=== PATIENT | male | born 1990 | race Hispanic/Latino ===

== ENCOUNTER 2018-02-25 02:42 | Emergency (ER) | payer SELFPAY ==
[2018-02-25] MEDS ORDERED: KETOROLAC 30 MG/ML INJ ONE (02:53)
[2018-02-25] MEDS ORDERED: NA CHLORIDE 0.9% 0 ML ONE (02:53)
[2018-02-25] MEDS ORDERED: MORPHINE 4 MG/ML SYR ONE ×2 (03:10→05:08)
[2018-02-25] MEDS ORDERED: ONDANSETRON 4 MG/2 ML VIAL ONE (03:10)
[2018-02-25 03:36] LABS: Absolute Lymphocytes (CBC) 5.6 K/uL (0.7-4.9); Absolute Neutrophil 5.2 K/uL (1.8-8.0); Basophils % 0.5 % (0-1.3); Eosinophils % 3.4 % (0-4.4); Hematocrit 44.6 % (39.6-49.0); Lymphocytes % 45.8 % (15.3-44.8); MCH 28.6 pg (27.0-35.0); MCV 84.5 fL (80-100); MPV 8.3 fL (7.6-11.3); RBC Red Blood Cell Count 5.27 M/uL (4.33-5.43)
[2018-02-25 03:59] LABS: Albumin 4.5 g/dL (3.2-5.5); Bilirubin Direct 0.1 mg/dL (0-0.2); Bilirubin Total 0.7 mg/dL (0.3-1.2); Potassium 3.2 mEq/L (3.6-5.0); Protein, Total 7.9 g/dL (6.0-8.3)
[2018-02-25] MEDS ORDERED: NA CHLORIDE 0.9% 1,000 ML ONE ×2 (04:57→05:08)
[2018-02-25] MEDS ORDERED: HYDROMORPHONE HCL 0.5 MG/0.5 ML INJ ONE (04:57)
--- NOTE | 2018-02-25 05:12 | EDPHYS ---
Physician Documentation [facility] Name: Jamar Myers Age: 27 yrs Sex: Male : 1990 Arrival Date: 02/25/2018 Time: 02:44 Bed 6 Private MD: ED Physician Hollis Kang HPI: 02/25 05:06 This 27 yrs old Male presents to ER via Wheelchair with complaints of tw4 Abdominal Pain. 05:06 The patient presents with abdominal pain in the left lower quadrant. Onset: The tw4 symptoms/episode began/occurred just prior to arrival, today. The symptoms radiate to the left flank. Associated signs and symptoms: none. The symptoms are described as dull, sharp. Modifying factors: The symptoms are alleviated by nothing, the symptoms are aggravated by nothing. Severity of pain: At its worst the pain was moderate in the emergency department the pain is actually worse. The patient has not experienced similar symptoms in the past. Historical: - Allergies: 02:52 No Known Allergies; aa1 - Home Meds: 02:52 None [Active]; aa1 - PMHx: 02:52 None; aa1 - PSHx: 02:52 None; aa1 - Immunization history:: Flu vaccine is not up to date. - Social history:: Smoking status: Patient/guardian denies using tobacco. ROS: 05:06 Constitutional: Negative for fever, chills, and weight loss, Cardiovascular: Negative tw4 for chest pain, palpitations, and edema, Respiratory: Negative for shortness of breath, cough, wheezing, and pleuritic chest pain. 05:06 MS/Extremity: Negative for injury and deformity, Skin: Negative for injury, rash, and discoloration, Neuro: Negative for headache, weakness, numbness, tingling, and seizure. 05:06 Abdomen/GI: Positive for abdominal pain, Negative for 05:06 Back: Positive for flank pain, on the left, radiated pain. Exam: 05:06 Head/Face: Normocephalic, atraumatic. tw4 05:06 Chest/axilla: Normal chest wall appearance and motion. Nontender with no deformity. No lesions are appreciated. Cardiovascular: Regular rate and rhythm with a normal S1 and S2. No gallops, murmurs, or rubs. Normal PMI, no JVD. No pulse deficits. Respiratory: Lungs have equal breath sounds bilaterally, clear to auscultation and percussion. No rales, rhonchi or wheezes noted. No increased work of breathing, no retractions or nasal flaring. MS/ Extremity: Pulses equal, no cyanosis. Neurovascular intact. Full, normal range of motion. Neuro: Awake and alert, GCS 15, oriented to person, place, time, and situation. Cranial nerves II-XII grossly intact. Motor strength 5/5 in all extremities. Sensory grossly intact. Cerebellar exam normal. Normal gait. 05:06 Constitutional: The patient appears agitated, in obvious distress, severely distressed, in obvious pain. 05:06 Abdomen/GI: Inspection: abdomen appears normal, Bowel sounds: normal, Palpation: mild abdominal tenderness, in the left lower quadrant. Vital Signs: 02:52 BP 126 / 69; Pulse 107; Resp 48; Pulse Ox 100% on R/A; Weight 108.86 kg; Height 6 ft. 2 aa1 in. (187.96 cm); Pain 10/10; 04:00 BP 137 / 69; Pulse 105; Resp 22; Pulse Ox 100% on R/A; aa1 05:04 BP 118 / 62; Pulse 82; Resp 18; Pulse Ox 98% on R/A; aa1 06:00 BP 112 / 69; Pulse 70; Resp 16; Pulse Ox 99% on R/A; Pain 1/10; lp1 02:52 Body Mass Index 30.81 (108.86 kg, 187.96 cm) aa1 MDM: 02:52 Patient medically screened. tw4 05:09 Differential diagnosis: appendicitis, diverticulitis, gastritis, gastroesophageal tw4 reflux disease, Peritonitis, Pyelonephritis, Testicular Torsion, Ureterolithiasis, urinary tract infection. Data reviewed: vital signs, nurses notes. Counseling: I had a detailed discussion with the patient and/or guardian regarding: the historical points, exam findings, and any diagnostic results supporting the discharge/admit diagnosis, lab results, radiology results. Medication response: morphine markedly relieved the patient's pain. Symptoms have improved. Response to treatment: the patient's symptoms have markedly improved after treatment, and as a result, I will discharge patient. Special discussion: Based on the patient's Hx, exam, and Dx evaluation, there is no indication for emergent surgery or inpatient Tx. It is understood by the patient/guardian that if the Sx's persist or worsen they need to return immediately for re-evaluation. I discussed with the patient/guardian in detail that at this point there is no indication for admission to the hospital. It is understood, however, that if the symptoms persist or worsen the patient needs to return immediately for re-evaluation. ED course: Pt CT scan results revealed 2-3mm calculus in the left UVJ. 02/25 02:58 Order name: Amylase, Serum tw4 02/25 02:58 Order name: Basic Metabolic Panel tw4 02/25 02:58 Order name: CBC with Diff tw4 02/25 02:58 Order name: Creatinine for Radiology tw4 02/25 02:58 Order name: Hepatic Function [facility] 02/25 02:58 Order name: Lipase [facility] 02/25 03:13 Order name: Stone Protocol [facility] 02/25 02:58 Order name: IV Saline Lock; Complete Time: 03:30 tw4 02/25 02:58 Order name: Labs collected and sent; Complete Time: 03:28 tw4 Administered Medications: 03:00 Drug: TORadol 30 mg Route: IVP; Site: right forearm; lp1 03:28 Follow up: Response: Pain is unchanged, physician notified lp1 03:00 Drug: NS 0.9% 1000 ml Route: IV; Rate: 1 bolus; Site: right forearm; lp1 05:10 Follow up: IV Status: Completed infusion; IV Intake: 1000ml lp1 03:27 Drug: morphine 4 mg Route: IVP; Site: right forearm; lp1 04:00 Follow up: Response: Pain is decreased lp1 03:27 Drug: Zofran 4 mg Route: IVP; Site: right forearm; lp1 05:10 Follow up: Response: No adverse reaction lp1 05:02 CANCELLED (Other Intervention Used): Dilaudid 1 mg IVP once aa1 05:11 Drug: NS 0.9% 1000 ml Route: IV; Rate: 1 bolus; Site: right forearm; lp1 06:00 Follow up: IV Status: Completed infusion; IV Intake: 1000ml lp1 05:12 Not Given (Physician Discretion): morphine 4 mg IVP once lp1 05:12 Drug: Dilaudid 1 mg Route: IVP; Site: right forearm; lp1 06:00 Follow up: Response: Pain is decreased lp1 Disposition: 02/25/18 05:11 Discharged to Home. Impression: Calculus of ureter. - Condition is Stable. - Discharge Instructions: Kidney Stones, Ureteral Colic, Kidney Stones, [id number]. - Prescriptions for Ibuprofen 800 mg Oral Tablet - take 1 tablet by ORAL route every 8 hours As needed take with food; 30 tablet. Tylenol- Codeine #3 300-30 mg Oral Tablet - take 2 tablet by ORAL route every 6 hours As needed; 30 tablet. Zofran 4 mg Oral Tablet - take 1 tablet by ORAL route every 12 hours As needed; 6 tablet. - Medication Reconciliation Form, Thank You Letter, Antibiotic Education, Prescription Opioid Use form. - Follow up: Private Physician; Reason: Recheck today's complaints, Continuance of care, Re-evaluation by your physician. Follow up: Rossy Gomez MD; When: 1 - 2 days; Reason: Recheck today's complaints, Continuance of care, Re-evaluation by your physician. Signatures: Dispatcher [employer] Jennifer Conde RN RN aa1 Nicky Myers RN RN lp1 Hollis Kang MD MD tw4 Corrections: (The following items were deleted from the chart) 03:13 02:58 Abdomen Pelvis Wo Con+CT.RAD.BRZ ordered. [facility] 05:02 04:51 Dilaudid 1 mg IVP once ordered. tw4 aa1 06:17 05:11 02/25/2018 05:11 Discharged to Home. Impression: Calculus of ureter. Condition is lp1 Stable. Forms are Medication Reconciliation Form, Thank You Letter, Antibiotic Education, Prescription Opioid Use. Follow up: Private Physician; Reason: Recheck today's complaints, Continuance of care, Re-evaluation by your physician. Follow up: Rossy Gomez; When: 1 - 2 days; Reason: Recheck today's complaints, Continuance of care, Re-evaluation by your physician. tw4
--- NOTE | 2018-02-25 05:12 | ER ---
Nurse's Notes [facility] Name: Jamar Myers Age: 27 yrs Sex: Male : 1990 Arrival Date: 02/25/2018 Time: 02:44 Bed 6 Private MD: Diagnosis: Calculus of ureter Presentation: 02/25 02:50 Presenting complaint: Patient states: sudden onset of severe LLQ pain this evening. aa1 Denies any other symptoms. Pt screaming and hyperventilating in triage. Transition of care: patient was not received from another setting of care. Onset of symptoms was February 25, 2018. Initial Sepsis Screen: Does the patient meet any 2 criteria? RR > 20 per min. HR > 90 bpm. Yes Does the patient have a suspected source of infection? Yes: Acute abdominal pain. Care prior to arrival: None. 02:50 Method Of Arrival: Wheelchair aa1 02:50 Acuity: JCARLOS 2 aa1 Historical: - Allergies: 02:52 No Known Allergies; aa1 - Home Meds: 02:52 None [Active]; aa1 - PMHx: 02:52 None; aa1 - PSHx: 02:52 None; aa1 - Immunization history:: Flu vaccine is not up to date. - Social history:: Smoking status: Patient/guardian denies using tobacco. Screenin:50 Abuse screen: Denies threats or abuse. Denies injuries from another. Nutritional lp1 screening: No deficits noted. Tuberculosis screening: No symptoms or risk factors identified. Fall Risk None identified. Assessment: 03:00 General: Appears distressed, Behavior is anxious, restless. Pain: Complains of pain in lp1 left lower quadrant Pain currently is 10 out of 10 on a pain scale. Quality of pain is described as sharp, Pain began suddenly, Noted to be grimacing, moaning, restless, Also complains of nausea. Neuro: Level of Consciousness is awake, alert. Cardiovascular: Patient's skin is warm and dry. Respiratory: Respiratory effort is even, Respiratory pattern is regular, symmetrical. GI: Abdomen is non-distended, Bowel sounds present X 4 quads. Abdomen is tender to palpation in left lower quadrant. : Reports pain in left flank(s), lower quadrant(s). EENT: No signs and/or symptoms were reported regarding the EENT system. Derm: Skin is pink, warm \\T\\ dry. Musculoskeletal: Circulation, motion, and sensation intact. 03:28 Reassessment: Patient returned from CT, vomiting at this time. lp1 04:30 Reassessment: Patient states pain "comes and goes but when it comes it's bad"; Appears lp1 in no distress at this time, aware of results per Dr. Kang. 05:30 Reassessment: Patient appears in no apparent distress at this time. Patient and/or lp1 family updated on plan of care and expected duration. Pain level reassessed. Patient resting, eyes closed, respirations unlabored. 06:00 Reassessment: Patient is alert, oriented x 3, equal unlabored respirations, skin lp1 warm/dry/pink. Patient states feeling better. Patient states symptoms have improved. Vital Signs: 02:52 BP 126 / 69; Pulse 107; Resp 48; Pulse Ox 100% on R/A; Weight 108.86 kg; Height 6 ft. 2 aa1 in. (187.96 cm); Pain 10/10; 04:00 BP 137 / 69; Pulse 105; Resp 22; Pulse Ox 100% on R/A; aa1 05:04 BP 118 / 62; Pulse 82; Resp 18; Pulse Ox 98% on R/A; aa1 06:00 BP 112 / 69; Pulse 70; Resp 16; Pulse Ox 99% on R/A; Pain 1/10; lp1 02:52 Body Mass Index 30.81 (108.86 kg, 187.96 cm) aa1 ED Course: 02:44 Patient arrived in ED. am2 02:50 Missed attempt(s): 18 gauge in right antecubital area. lp1 02:51 Triage completed. aa1 02:52 Hollis Kang MD is Attending Physician. tw4 02:52 Arm band placed on right wrist. Patient placed in an exam room, on a stretcher. aa1 03:00 Patient has correct armband on for positive identification. Pulse ox on. NIBP on. lp1 03:00 Inserted saline lock: 20 gauge in right forearm, using aseptic technique. Blood lp1 collected. 03:14 Stone Protocol In Process Unspecified. EDMS 03:21 Nicky Myers, THOMAS is Primary Nurse. lp1 03:22 CT completed. Pt tolerated procedure poorly. Patient moved to CT via stretcher. Patient eh moved back from CT. 05:10 Rossy Gomez MD is Referral Physician. tw4 05:50 No provider procedures requiring assistance completed. lp1 06:16 IV discontinued, No redness/swelling at site. Pressure dressing applied. lp1 Administered Medications: 03:00 Drug: TORadol 30 mg Route: IVP; Site: right forearm; lp1 03:28 Follow up: Response: Pain is unchanged, physician notified lp1 03:00 Drug: NS 0.9% 1000 ml Route: IV; Rate: 1 bolus; Site: right forearm; lp1 05:10 Follow up: IV Status: Completed infusion; IV Intake: 1000ml lp1 03:27 Drug: morphine 4 mg Route: IVP; Site: right forearm; lp1 04:00 Follow up: Response: Pain is decreased lp1 03:27 Drug: Zofran 4 mg Route: IVP; Site: right forearm; lp1 05:10 Follow up: Response: No adverse reaction lp1 05:02 CANCELLED (Other Intervention Used): Dilaudid 1 mg IVP once aa1 05:11 Drug: NS 0.9% 1000 ml Route: IV; Rate: 1 bolus; Site: right forearm; lp1 06:00 Follow up: IV Status: Completed infusion; IV Intake: 1000ml lp1 05:12 Not Given (Physician Discretion): morphine 4 mg IVP once lp1 05:12 Drug: Dilaudid 1 mg Route: IVP; Site: right forearm; lp1 06:00 Follow up: Response: Pain is decreased lp1 Intake: 05:10 IV: 1000ml; Total: 1000ml. lp1 06:00 IV: 1000ml; Total: 2000ml. lp1 Outcome: 05:11 Discharge ordered by . tw4 06:00 Discharged to home ambulatory, with significant other. lp1 06:00 Condition: good 06:00 Discharge instructions given to patient, significant other, Instructed on discharge instructions, follow up and referral plans. medication usage, Demonstrated understanding of instructions, follow-up care, medications, Prescriptions given X 3. 06:17 Patient left the ED. lp1 Signatures: Dispatcher [employer] EDMS Jennifer Bauer RN RN aa1 Isai Salamanca Nicky Myers RN RN lp1 Mosqueda, Fouzia am2 Jorge Luis, Hollis, MD MD tw4
--- NOTE | 2018-02-25 09:01 | RAD REPORT ---
EXAM DESCRIPTION: CT - Stone Protocol - 02/25/2018 6:18 am CLINICAL HISTORY: Flank pain. COMPARISON: None. TECHNIQUE: Axial images were obtained without oral or IV contrast. Lack of contrast limits solid org an and vascular assessment. The [id number] spans the entirety of the system partially obscuring uppermost abdomen and lung bases. Coronal reformatted images were obtained and reviewed. All CT scans are performed using dose optimization technique as appropriate and may include automated exposure control or mA/KV adjustment according to patient size. FINDINGS: The lower lung majano are clear. Imaged portions of the liver and spleen show no suspicious findings on non-contrast imaging. The panc reas and adrenal glands are normal. No pathologic lymphadenopathy in the abdomen or pelvis. 3 mm stone is seen at the left UVJ along the bladder mucosa. Mild left hydronephrosis. Punctate right nephrolithiasis also seen. No bowel obstruction, free air, free fluid or abscess. Small fat containing umbilical hernia. Normal appendix noted. No significant bony abnormality. IMPRESSION: 3 mm left UVJ stone along the bladder mucosa is seen with mild left hydronephrosis. Punctate right nephrolithiasis without hydronephrosis.
== END 2018-02-25 06:17 | disposition home or self-care (01) ==
LOC: ER 02:42
DX: N20.1 Calculus of ureter (principal)
CPT/HCPCS: 36415; 74176; 76377; 80048; 80076; 82150; 83690; 85025; 96361; 96374; 96375; 99284; J1170; J2405; J7030